=== PATIENT | male | born 1960 | race Caucasian/White ===

== ENCOUNTER → 2022-01-01 | Day surgery (SDC) | payer OTHER ==
[~2022-01-01] VITALS: Ht 175.3 cm; Wt 83.9 kg
[~2022-01-01] MED LIST: ACETAMINOPHEN500 M1 PO; ALLEGRA-D 12 H1 EACH PO; D3-200050 MCG PO; GLUCOSAMINE1000 MG PO; LOVAZA1 GM PO; MOTRIN600 MG PO; MULTAQ400 MG PO; OXY-IR 5MG5 MG PO; POTASSIUM GLUC500 MG PO; VITAMIN B-121000 MC1 PO
== END | disposition home or self-care (01) ==
LOC: FAS 06:33
DX: D17.79 Benign lipomatous neoplasm of other sites (principal); Z72.89 Other problems related to lifestyle
CPT/HCPCS: J1100; J2250; J2405; J2704; J3010